=== PATIENT | male | born 1980 | race Two or more races ===

== ENCOUNTER 2017-01-16 03:13 | Emergency (ER) | payer BC, MEDICAID ==
[~2017-01-16] VITALS: Ht 167.6 cm; Wt 74.8 kg
[~2017-01-16 03:13] MED LIST: HALO2TAB9 PO
--- NOTE | 2017-01-16 03:36 | NUR ---
Patient discharged to home in stable conditon. Written and verbal after care instructions given. Patient verbalizes understanding of instructions. WALKED OUT OF ER WITH STEADY GAIT
== END 2017-01-16 03:39 | disposition home or self-care (01) ==
LOC: ER 03:17
DX: L03.116 Cellulitis of left lower limb (principal); F17.200 Nicotine dependence, unspecified, uncomplicated
CPT/HCPCS: A4663

== ENCOUNTER 2017-11-06 22:35 | Emergency (ER) | payer BC ==
[~2017-11-06] VITALS: Ht 170.2 cm; Wt 77.1 kg
[2017-11-06] MEDS ORDERED: LIDOCAINE HCL 1% 20 ML VIAL TP ONE (23:15)
--- NOTE | 2017-11-06 23:53 | NUR ---
Patient discharged to home in stable conditon. Written and verbal after care instructions given. Patient verbalizes understanding of instructions.
== END 2017-11-06 23:54 | disposition home or self-care (01) ==
LOC: ER 22:35
DX: S01.511A Laceration without foreign body of lip, initial encounter (principal); S01.512A Laceration without foreign body of oral cavity, initial encounter; S01.81XA Laceration without foreign body of other part of head, initial encounter; F17.200 Nicotine dependence, unspecified, uncomplicated; Y04.0XXA Assault by unarmed brawl or fight, initial encounter; Y92.89 Other specified places as the place of occurrence of the external cause; Y93.89 Activity, other specified; Y99.8 Other external cause status
CPT/HCPCS: 12014; 99284; A4217; A4663; J3490

== ENCOUNTER 2017-11-09 04:10 | Emergency (ER) | payer BC ==
[~2017-11-09] VITALS: Ht 170.2 cm; Wt 77.1 kg
--- NOTE | 2017-11-09 04:25 | NUR ---
TO ROOM FOR ER EVAL
--- NOTE | 2017-11-09 04:35 | NUR ---
D/C HOME WITH VERBAL ACI
== END 2017-11-09 04:38 | disposition home or self-care (01) ==
LOC: ER 04:13
DX: Z48.00 Encounter for change or removal of nonsurgical wound dressing (principal); X58.XXXD Exposure to other specified factors, subsequent encounter
CPT/HCPCS: A4663

== ENCOUNTER 2017-11-19 00:03 | Emergency (ER) | payer BC ==
[~2017-11-19] VITALS: Ht 167.6 cm; Wt 79.4 kg
--- NOTE | 2017-11-19 01:39 | NUR ---
Patient discharged to home in stable conditon. Written and verbal after care instructions given. Patient verbalizes understanding of instructions.
== END 2017-11-19 01:40 | disposition home or self-care (01) ==
LOC: ER 00:10
DX: Z48.02 Encounter for removal of sutures (principal); F95.2 Tourette's disorder; F17.200 Nicotine dependence, unspecified, uncomplicated
CPT/HCPCS: A4663

== ENCOUNTER 2017-11-21 20:14 | Emergency (ER) | payer BC ==
[~2017-11-21] VITALS: Ht 167.6 cm; Wt 81.6 kg
--- NOTE | 2017-11-21 21:26 | NUR ---
PATIENT IN BED, NO ACUTE DISTRESS NOTED. ER MD AT BEDSIDE FOR PATIENT EVALUATION.
--- NOTE | 2017-11-21 21:38 | NUR ---
Patient discharged to home in stable conditon. Written and verbal after care instructions given. Patient verbalizes understanding of instructions.
== END 2017-11-21 21:38 | disposition home or self-care (01) ==
LOC: ER 20:24
DX: Z48.02 Encounter for removal of sutures (principal)
CPT/HCPCS: A4663

== ENCOUNTER 2018-02-21 22:17 | Emergency (ER) | payer BC ==
[~2018-02-21] VITALS: Ht 167.6 cm; Wt 75.3 kg
--- NOTE | 2018-02-21 22:40 | NUR ---
Patient ambulated to ER with steady gait, was requesting for a blood test, suspects may have contracted a sexually transmitted disease. Pt c/o backpain and pain on urination.
--- NOTE | 2018-02-21 22:43 | NUR ---
Dr. Smith at bedside for MSE.
[2018-02-21] MEDS ORDERED: CEFTRIAXONE 500 MG VIAL IM ONE (22:45)
[2018-02-21] MEDS ORDERED: AZITHROMYCIN 250 MG TABLET PO ONE (22:45)
--- NOTE | 2018-02-21 22:48 | NUR ---
Patient provided urine sample, sent to lab.
[2018-02-21] MEDS ORDERED: LIDOCAINE HCL 1% 20 ML VIAL ONE (22:53)
[2018-02-21] MEDS ORDERED: AZITHROMYCIN 250 MG TABLET ONE (22:53)
[2018-02-21] MEDS ORDERED: CEFTRIAXONE 500 MG VIAL ONE (22:53)
[2018-02-21 23:24] LABS: *BILIRUBIN,URIN NEGATIVE (NEGATIVE); *BLOOD, URINE NEGATIVE (NEGATIVE); *CLARITY,URINE CLEAR (CLEAR); *COLOR,URINE YELLOW (YELLOW); *KETONES,URINE TRACE (NEGATIVE); *PROTEIN,URINE NEGATIVE (NEGATIVE); *UROBILINOGEN,URINE 0.2 E.U./dl (NORMAL); LEUKOCYTE ESTERASE ,URINE 1+ (NEGATIVE); NITRITE, URINE NEGATIVE (NEGATIVE); UGLUCOSE NEGATIVE (NEGATIVE)
[2018-02-21 23:33] LABS: BACTERIA,URINE NONE SEEN /HPF (NONE SEEN); MUCUS,URINE MODERATE /LPF (0-FEW); RBC,URINE 0-3 /HPF (0-3); SQUAMOUS EPITHELIAL CELL,UR FEW /HPF (NONE SEEN)
--- NOTE | 2018-02-21 23:48 | NUR ---
Patient discharged to home in stable conditon. Written and verbal after care instructions given. Patient verbalizes understanding of instructions. Patient ambulated out of ER with steady gait, no acute signs of distress, VSS, all belongings taken.
[2018-02-21 23:50] VITALS: BP 115/82
[2018-02-25 08:07] LABS: *GC NAA Negative (Negative); *TRIC.VAG. NAA Negative (Negative)
== END 2018-02-21 23:50 | disposition home or self-care (01) ==
LOC: ER 22:17
DX: N39.0 Urinary tract infection, site not specified (principal); Z20.2 Contact with and (suspected) exposure to infections with a predominantly sexual mode of transmission; F17.210 Nicotine dependence, cigarettes, uncomplicated; F12.10 Cannabis abuse, uncomplicated; Z79.899 Other long term (current) drug therapy
CPT/HCPCS: 87086; 87491; A4663; J0696; J3490; Q0144

== ENCOUNTER 2018-05-13 12:39 | Emergency (ER) | payer BC ==
[~2018-05-13] VITALS: Ht 167.6 cm; Wt 75.3 kg
[2018-05-13 16:19] LABS: *BILIRUBIN,URIN NEGATIVE (NEGATIVE); *BLOOD, URINE Trace-intact (NEGATIVE); *COLOR,URINE YELLOW (YELLOW); *KETONES,URINE NEGATIVE (NEGATIVE); *PROTEIN,URINE NEGATIVE (NEGATIVE); *UROBILINOGEN,URINE 0.2 E.U./dl (NORMAL); LEUKOCYTE ESTERASE ,URINE TRACE (NEGATIVE); NITRITE, URINE NEGATIVE (NEGATIVE); UGLUCOSE NEGATIVE (NEGATIVE)
[2018-05-13 16:33] LABS: *CLARITY,URINE HAZY (CLEAR)
[2018-05-13 16:35] LABS: MUCUS,URINE MANY /LPF (0-FEW); SQUAMOUS EPITHELIAL CELL,UR FEW /HPF (NONE SEEN); WBC,URINE 20-50 /HPF (0-3)
--- NOTE | 2018-05-13 17:00 | NUR ---
DR HE MADE PATIENT AWARE OF TEST RESULTS WILL BE DC HOME.
--- NOTE | 2018-05-13 17:09 | NUR ---
Patient discharged to home in stable conditon. Written and verbal after care instructions given. Patient verbalizes understanding of instructions.
[2018-05-13 17:11] VITALS: BP 110/78
== END 2018-05-13 17:14 | disposition home or self-care (01) ==
LOC: ER 12:39
DX: N39.0 Urinary tract infection, site not specified (principal); F17.200 Nicotine dependence, unspecified, uncomplicated; F12.10 Cannabis abuse, uncomplicated
CPT/HCPCS: A4663